=== PATIENT | male | born 1990 | race Caucasian/White ===

== ENCOUNTER → 2020-03-06 | Outpatient (CLI) | payer BC | LOC: COL.RAD 14:23 | DX: M79.9 Soft tissue disorder, unspecified (principal) ==

== ENCOUNTER → 2022-07-01 | Outpatient (CLI) | payer OTHER | LOC: COL.RAD 08:59 | DX: K76.0 Fatty (change of) liver, not elsewhere classified (principal); N41.9 Inflammatory disease of prostate, unspecified ==